=== PATIENT | male | born 1975 | race Caucasian/White ===

== ENCOUNTER 2019-05-04 09:28 | Emergency (ER) | payer OTHER, SELFPAY ==
--- NOTE | ~2019-05-04 | XR_ITS ---
EXAMINATION: XR chest 2V DATE: 05/04/2019 11:00 INDICATION: Left anterior chest pain. TECHNIQUE: Frontal and lateral views of the chest were obtained. COMPARISON: Chest 2 views 07/05/2011 FINDINGS: The chest demonstrates clear lungs without pneumonia, pleural effusion, or pneumothorax. Th e heart size is normal. IMPRESSION: 1. No acute cardiopulmonary disease. Reviewed, dictated and finalized at location A. L[facility] SPECIALIST
[2019-05-04 09:50] VITALS: BP 175/112; PULSE 79; RESP 20; TEMP 37; O2SAT 97
--- NOTE | 2019-05-04 10:29 | ECG_ITS ---
Measurements Intervals [place] Rate: 71 P: 55 WV: 185 QRS: 62 QRSD: 100 T: 47 QT: 386 QTc: 422 Interpretive Statements SINUS RHYTHM DELAYED PRECORDIAL R/S TRANSITION BORDERLINE ECG Electronically Signed On 05-04-2019 14:02:03 FAMILY SERVICES SPECIALIST by Paras Delatorre D.O.
--- NOTE | 2019-05-04 10:32 | ED.GENADULT ---
HPI - General Adult General Chief complaint: Dental/Oral Stated complaint: TOOTHACHE Time Seen by Provider: 05/04/19 10:10 Source: patient Mode of arrival: ambulatory Limitations: no limitations History of Present Illness HPI narrative: Phong is a very pleasant 43-year-old male patient. He presents ambulatory to the emergency room. He says that he has had toothache in tooth 9 for the past week. Phong has had root canals done in tooth 8. And 9 about 10 years ago by . However he has not seen a dentist in several years. The feelings are on the inner aspect of the teeth. His dentition appears to be okay. No fever. No difficulty swallowing or chewing. No difficulty opening his mouth wide. Phong also states that for the past 1 month or so he has had some vague left chest discomfort. He says it is not related to any particular activity. It just comes and goes. Right now he is not having any discomfort or pain. At times it goes down the left arm with some numbness any does not have this symptom now. When asked him about his past history, he states that he has hypertension. He is not on any medication. He has not seen a doctor for this. I asked him how dizzy know that he has hypertension any said that he had seen his primary care physician more than 10 years ago and at that time they were watching his blood pressure but was not on any medication. Phong is no history of RI, diabetes mellitus, cancer of any type. He is not a smoker. He does however smoke marijuana daily. Both his parents are alive. They are 69 years of age each. He says his father has hypertension but is also not on any medication Phong has not had any surgery except root canal. He had a broken wrist on the right side in the remote past. MD complaint: Toothache. chest discomfort. Onset (ago): month(s) ( Chest discomfort for 1 month. Toothache for 1 week.) Location: chest Radiation: other ( see HPI narrative for details) Severity: mild Relieving factors: other ( symptoms are intermittent. Currently he is not having any symptoms.) Exacerbating factors: none Associated symptoms: other ( See HPI narrative) Treatments prior to arrival: none Related Data Allergies Allergy/AdvReac Type Severity Reaction Status Date / Time No Known Allergies Allergy Verified 05/04/19 10:32 Review of Systems Review of Systems: All systems reviewed & are unremarkable except as noted in HPI and below Constitutional: Constitutional: Reports as per HPI, Reports no additional constitutional complaints, Denies chills, Denies fever(s) and Denies weakness Eyes: Eyes: Reports as per HPI, Reports no additional eye complaints and Denies change in vision ENT: Reports system reviewed and no additional complaints, except as documented, Denies dysphagia, Denies vertigo, Denies nasal congestion and Denies sore throat Cardiovascular: Cardiovascular: Reports as per HPI, Reports chest pain and Reports radiating jaw, neck or arm pain Respiratory: Respiratory: Reports as per HPI, Reports no additional respiratory complaints and Denies cough Gastrointestinal: Gastrointestinal: Reports as per HPI, Reports no additional gastrointestinal complaints, Denies abdominal pain, Denies diarrhea and Denies vomiting Genitourinary: Genitourinary: Reports no additional male genitourinary complaints, Denies hematuria and Denies dysuria Musculoskeletal: Musculoskeletal: Reports no additional musculoskeletal complaints and Denies back pain Integumentary/Breasts: Skin/Breast: Reports system reviewed and no additional complaints, except as docu, Denies erythema and Denies rash Neurologic: Reports system reviewed and no additional complaints, except as documented, Reports as per HPI, Denies vertigo, Denies dizziness and Denies syncope Comments: mild anxiety. Psychiatric: Psychiatric: Reports no additional psychiatric complaints and Reports anxiety Endocrine: Endocrine: Reports no additional endocrine complaint
--- NOTE | 2019-05-04 10:56 | PC.NURSE ---
report to dolores wasserman
[2019-05-04 10:58] LABS: Add Urine Microscopic? NO; Appearance Urine Clear (Clear); Bilirubin Urine Negative (Negative); Blood Urine Negative (Negative); Color Urine Yellow (Yellow); Glucose Urine UA Negative (Negative); Ketones Urine Negative (Negative); Leukocyte Esterase Ur Negative LEU/UL (Negative); Nitrate Urine Negative (Negative); Protein Urine Negative (Negative); Urobilinogen Urine 0.2 mg/dL (0.2-1.0)
[2019-05-04 11:04] LABS: Basophils Absolute Auto 0.04 K/mm3 (0.00-0.10); Basophils Percent Auto 0.7 % (0.0-1.0); Eosinophils Absolute Auto 0.07 K/mm3 (0.02-0.50); Eosinophils Percent Auto 1.3 % (1.0-6.0); Hematocrit 48.4 % (40.0-54.0); Hemoglobin 16.8 g/dL (14.0-18.0); Immature Granulocyte Absolute 0.02 K/mm3 (0.00-0.00); Immature Granulocyte Percent A 0.4 % (0.0-0.0); Lymphocytes Absolute Auto 0.96 K/mm3 (1.10-4.50); Lymphocytes Percent Auto 17.4 % (18.0-42.0); Mean Corpuscular HGB Conc 34.7 g/dL (32.0-36.0); Mean Corpuscular Hemoglobin 32.7 pg (27.0-31.0); Mean Corpuscular Volume 94.2 fL (78.0-102.0); Mean Platelet Volume 8.9 fl (8.7-11.0); Monocytes Percent Auto 7.3 % (2.0-11.0); Neutrophils Percent Auto 72.9 % (50.0-70.0); Platelet Count Result 249 K/mm3 (150-420); Red Blood Count 5.14 M/mm3 (4.70-6.10); White Blood Count 5.5 K/mm3 (4.8-10.8)
[2019-05-04 11:09] LABS: Amphetamine Screen Urine Negative (Negative); Barbiturate Screen Urine Negative (Negative); Benzodiazepines Screen Urine Negative (Negative); Cannabinoid Screen Urine Positive (Negative); Cocaine Screen Urine Negative (Negative); Methadone Screen Urine Negative (Negative); Opiate Screen Urine Negative (Negative); Phencyclidine Screen Urine Negative (Negative)
[2019-05-04 11:13] LABS: Partial Thromboplastin Time 26.8 SEC (22.3-31.6); Prothrombin Time 10.4 Seconds (9.64-11.0)
[2019-05-04 11:14] LABS: Influenza Control Valid (Valid)
[2019-05-04 11:25] LABS: Alanine Aminotransferase 32 U/L (16-63); Albumin Level 4.2 g/dL (3.4-5.0); Alkaline Phosphatase 68 U/L (46-116); Anion Gap 15.4 mmol/L (7-16); Aspartate Amino Transferase 18 U/L (15-37); Bilirubin,Total 0.5 mg/dL (0.00-1.00); Blood Urea Nitrogen 13 mg/dL (7-18); Calcium 8.7 mg/dL (8.5-10.1); Carbon Dioxide 27 mmol/L (21-32); Chloride 103 mmol/L (98-108); Creatine Kinase 124 U/L (39-308); Estimated CRCL calculation 130 ml/min; Estimated Glomerular Filt Rate > 60; Glucose 124 mg/dL (70-99); Osmolality Calculated 293 mOsm/kg (285-295); Potassium 4.4 mmol/L (3.5-5.1); Sodium 141 mmol/L (136-145)
[2019-05-04 11:26] LABS: Magnesium 2.1 mg/dL (1.8-2.4); Thyroid Stimulating Hormone 1.85 uIU/mL (0.36-3.74); Troponin I < 0.02 ng/mL (0.00-0.056)
[2019-05-04 11:42] VITALS: BP 141/100; PULSE 20; RESP 20; O2SAT 97
[2019-05-04 11:55] LABS: Erythrocyte Sedimentation Rate 2 mm/hr (0-15)
== END 2019-05-04 11:45 | disposition home or self-care (01) ==
LOC: CHSED 09:33
PROVIDERS: Emergency Provider Surgery
DX: K02.9 Dental caries, unspecified (principal); K08.89 Other specified disorders of teeth and supporting structures; I10 Essential (primary) hypertension
CPT/HCPCS: 36415; 71046; 80053; 80307; 81003; 82550; 82553; 83735; 84443; 84484; 85025; 85610; 85652; 85730; 87804; 93005; 99284

== ENCOUNTER 2021-12-14 13:32 | Outpatient (CLI) | payer BC, SELFPAY ==
--- NOTE | ~2021-12-14 | XR_ITS ---
XR chest 2V 12/14/2021 13:55 Indication: Chest palpitations Procedure: 2 view chest Comparison: 05/04/2019 Findings: Heart size normal. There are prominent bilateral emily. Cannot exclude lymph node enlargemen t. No focal airspace disease, pleural effusion, edema or pneumothorax. Impression: 1: Mildly prominent bilateral emily. Cannot exclude hilar lymphadenopathy. Consider correlation with c ontrast-enhanced CT chest. Reviewed, dictated and finalized at location A. Impression: 1: Mildly prominent bilateral emily. Cannot exclude hilar lymphadenopathy. Consi lexy correlation with contrast-enhanced CT chest.
--- NOTE | 2022-01-29 08:10 | WPDHOLTEREM ---
Holter/Event Monitor Holter/Event Monitor Date of procedure: 12/14/21 Holter/Event Procedure: Event Monitor Indications: Palpitations Conclusion: 1. 9 days event monitor between 12/14/21-01/12/22. There are 36 available transmissions for analysis. 2. Underlying rhythm is sinus rhythm. HR range 46-120 bpm; average HR 80 bpm. 3. There are occasional premature supraventricular complexes with total burden of <1%. No supraventricular tachycardia. 4. There are occasional premature ventricular complexes with total burden of 1%. No ventricular tachycardia. 5. There is a second degree AV block, type I at 46 bpm on 12/18/21 at 00:59. No significant pauses greater than 2 seconds. 6. Patient reports 27 episodes of symptoms of heart racing, skipped beat, chest pain, symptoms other than listed which demonstrate sinus rhythm, HR range 68-119 bpm with one episode with PAC.
== END 2021-12-14 13:33 | disposition home or self-care (01) ==
PROVIDERS: PCP Internal Medicine; Visit Provider Internal Medicine
DX: R00.2 Palpitations (principal); I10 Essential (primary) hypertension
CPT/HCPCS: 71046; 93270

== ENCOUNTER 2021-12-18 07:27 | Outpatient (CLI) | payer BC, SELFPAY ==
--- NOTE | ~2021-12-18 | CT_ITS ---
EXAMINATION:CT diagnostic chest w con DATE: 12/18/2021 08:32 INDICATION: Abnormal chest radiographs. Left chest discomfort. Palpitations. TECHNIQUE: Computed tomography (CT) of the chest was performed with 75 mL Omnipaque 350 intravenous c ontrast. Automated exposure control and iterative reconstruction technique were employed. The dose-le ngth product (DLP) was 504.63 mGy-cm. COMPARISON: Chest 2 views 12/14/2021 FINDINGS: There is a 3 mm nodule in right upper lobe, likely benign. There is a 10 mm nodule at right major fissure, likely an enlarged intrapulmonary lymph node. No pleural effusion. The heart size is normal. No pericardial effusion. There is bilateral hilar and mediastinal lymphadenopathy. For exampl e, a prevascular node measures 2.8 x 1.1 cm. There is a 1.1 cm mass in left hepatic lobe. There is mi ld thoracic spondylosis. There is mild chronic anterior wedging of T11 and T12 vertebral bodies, like ly physiologic. IMPRESSION: 1. Right lung nodule and bilateral hilar and mediastinal lymphadenopathy. These findings are most lik chong reactive lymphadenopathy such as sarcoid. Malignancy such as lymphoma cannot be excluded. 2. 1.1 cm mass in left hepatic lobe, which may be benign or less likely malignant. Abdomen MRI withou t and with contrast is recommended. Reviewed, dictated and finalized at location A. IMPRESSION: 1. Right lung nodule and bilateral hilar and mediastinal lymphadenopathy. These findings are most likely reactive lymphadenopathy such as sarcoid. Malignancy such as lymphoma cannot be excluded. 2. 1.1 cm mass in left hepatic lobe, which may be benign or less likely maligna nt. Abdomen MRI without and with contrast is recommended.
[2021-12-18 08:16] LABS: Estimated Glomerular Filt Rate > 60
== END 2021-12-18 07:28 | disposition home or self-care (01) ==
LOC: CHSIMG 07:29
PROVIDERS: PCP Internal Medicine; Visit Provider Internal Medicine
DX: R91.8 Other nonspecific abnormal finding of lung field (principal)
CPT/HCPCS: 71260; Q9967

== ENCOUNTER 2022-03-05 17:09 | Outpatient (CLI) | payer BC, SELFPAY ==
[2022-03-05 18:09] LABS: Influenza A QL RT-PCR Negative (Negative); Influenza B QL RT-PCR Negative (Negative); SARS-CoV-2 RNA PCR Positive (Negative)
[2022-03-05 18:25] LABS: RSV RNA, RT-PCR Negative (Negative)
== END 2022-03-05 17:10 | disposition home or self-care (01) ==
LOC: CHSLAB 17:11
PROVIDERS: PCP Internal Medicine; Visit Provider Internal Medicine
DX: U07.1 COVID-19 (principal); R05.9 Cough, unspecified; R50.9 Fever, unspecified
CPT/HCPCS: 87637

== ENCOUNTER 2022-10-15 15:57 | Outpatient (CLI) | payer BC, SELFPAY ==
--- NOTE | ~2022-10-15 | XR_ITS ---
XR foot RT min 3V DATE: 10/15/2022 16:33 INDICATION: Right Achilles tendinitis for 5 months. No injury. TECHNIQUE: 4 views COMPARISON: None FINDINGS: No calcification of the Achilles tendon or posterior calcaneal enthesopathy is noted. Slight plantar calcaneal enthesopathy. Moderate osteoarthritis at the first metatarsophalangeal joint. Os tibiale externum, normal variant. No fracture, dislocation, periosteal reaction or bone destruction or erosive change is noted. IMPRESSION: Slight plantar calcaneal enthesopathy Osteoarthritis at first metatarsophalangeal joint Reviewed, dictated and finalized at location B.
== END 2022-10-15 15:58 | disposition home or self-care (01) ==
LOC: CHSIMG 15:59
PROVIDERS: PCP Internal Medicine; Visit Provider Internal Medicine
DX: M76.61 Achilles tendinitis, right leg (principal); M77.31 Calcaneal spur, right foot; M19.071 Primary osteoarthritis, right ankle and foot
CPT/HCPCS: 73630

== ENCOUNTER 2022-10-29 14:59 | Outpatient (CLI) | payer BC, SELFPAY ==
--- NOTE | ~2022-10-29 | US_ITS ---
EXAMINATION: US venous doppler LE RT DATE: 10/29/2022 15:28 INDICATION: Right calf pain. TECHNIQUE: Grayscale ultrasound images without and with compression and Doppler ultrasound images of the right lower extremity veins were obtained. COMPARISON: None. FINDINGS: The visualized portions of right common femoral vein, profunda (deep) femoral vein, femoral vein, pop liteal vein, peroneal veins, posterior tibial veins, and greater saphenous vein outflow are patent. IMPRESSION: 1. No deep venous thrombosis. Reviewed, dictated and finalized at location A.
== END 2022-10-29 15:00 | disposition home or self-care (01) ==
PROVIDERS: PCP Internal Medicine; Visit Provider Internal Medicine
DX: M79.661 Pain in right lower leg (principal)
CPT/HCPCS: 93971

== ENCOUNTER → 2022-11-06 09:00 | Outpatient (CLI) | payer BC, SELFPAY ==
--- NOTE | ~2022-11-06 | MR_ITS ---
EXAMINATION: MR ankle RT wo con DATE: 11/06/2022 09:42 INDICATION: Achilles tendinitis with right calf pain. TECHNIQUE: Magnetic resonance imaging (MRI) of the right ankle was performed without intravenous cont rast. Sequences included sagittal, coronal, and axial proton-density weighted fast spin echo without and with fat saturation. COMPARISON: None. FINDINGS: Medial ankle ligaments: Deep and superficial deltoid ligaments as well as the spring ligament are normal. Lateral ankle ligaments: The anterior and posterior inferior tibiofibular ligaments are normal. The anterior talofibular, calc aneofibular and posterior talofibular ligaments are normal. Tendons: There is fusiform thickening and mild increased signal of the Achilles tendon centered approximately 6 cm proximal to the level of the calcaneal insertion. At the site of maximal thickening is a tiny le nticular T2 hyperintense intrasubstance fluid collection measuring 3 x 1 mm in maximal transaxial dim ensions and extending 7 mm proximal to distal consistent with an intrasubstance tear. No peritendinit is. The peroneus longus and brevis tendons are normal. The tibialis anterior and extensor hallucis lo ngus and extensor digitorum longus tendons are normal. The tibialis posterior, flexor digitorum longu s and flexor hallucis longus tendons are normal. Plantar fascia: Plantar aponeurosis is normal. Bones/other: Small low signal intensity bone island at the posterior calcaneus. Otherwise normal marrow signal wit h no fracture, reactive edema or pathologic marrow replacing process. Joint spaces are normal. Fluid: Physiologic amount fluid in the joint space. 9.8 x 5 mm homogeneously T2 hyperintense ganglion cyst a rising from the plantar aspect of the junction of the articulations at the third and fourth tarsal me tatarsal joints. No tenosynovitis, bursitis no other abnormal fluid collections. IMPRESSION: 1. Mild uniform tendinosis of the Achilles tendon with tiny intrasubstance tear. Reviewed, dictated and finalized at location A. IMPRESSION: 1. Mild uniform tendinosis of the Achilles tendon with tiny intrasubstance tear .
== END ==
PROVIDERS: PCP Internal Medicine; Visit Provider Internal Medicine
DX: M76.61 Achilles tendinitis, right leg (principal)
CPT/HCPCS: 73721

== ENCOUNTER 2022-11-15 13:47 | Outpatient (RCR) | payer BC, SELFPAY ==
--- NOTE | 2022-11-15 16:17 | OPREHPOC ---
Outpatient Therapy Plan of Care This is a Multidisciplinary Plan of Care that may contain components documented by all disciplines (PT, OT, and ST.) PT Problem 1 PT Problem #1 Knowledge Deficit PT Goal 1 Goal 1. Patient to demonstrate independence with HEP to improve progress made in PT. Target Visit 6 PT Problem 2 PT Problem #2 Impaired Flexibility PT Goal 1 Goal 1. Patient to improve R dorsiflexion passive ROM to at least 5 degrees with knee straight to improve patient's ability to walk uphill. 1. Patient to increase R eversion AROM to at least 23 degrees in order to improve patient's ability to perform single leg balance activities. Target Visit 6 PT Goal 2 Goal 1. patient to achieve 10 degrees arom bilateral ankle DF Target Visit 12 PT Problem 3 PT Problem #3 Impaired Strength PT Goal 1 Goal 1. Patient to achieve 5/5 R ankle strength to improve overall gait mechanics. 2. Patient to perform 25 consecutive R heel raises without loosing full range to improve patient's strength for squatting to pick objects up from floor. Target Visit 12 PT Problem 4 PT Problem #4 Pain PT Goal 1 Goal 1. Patient to report no more than 3/10 pain at worst with activity to improve ability to return to prior level functional activity performance and full work duties. Target Visit 12 PT Problem 5 PT Problem #5 Impaired Functional Mobil PT Goal 1 Goal 1. Patient to improve LEFS to 20% or less functional decline in order to improve patient's ability to stand for an hour at work. Target Visit 12
--- NOTE | 2022-11-15 16:18 | PTOPEVAL1 ---
Assessment and note entered by JT File, PT Evaluation Information Assessment Status Evaluation Diagnosis R achilles tendonitis, R heel pain Onset 05/25/22 Subjective Information Patient reports pain in the R heel and achilles area since May of this year, with majority of the pain being localized in the posterior and plantar heel. He visited the doctor and received an x-ray and MRI, showing R achilles tendonitis and a small intersubstance tear. He previously injured the R achilles as a child playing baseball , as well as another injury to the R heel by falling into a hole 3 years ago. He notes the pain comes and goes throughout the day. He has not been doing any exercises or stretching at home, but has been wearing shoe insoles as well as an ankle brace. He notes his goal is to be able to walk on concrete during the work day without increasing pain, he works at [employer]. He states he has been off work for 5 weeks and is planning to return in 3 weeks. He notes no difficulty walking short distances in the home, he does have pain with stair climbing, walking uphill, and lifting heavy weights. He has been treating the pain at home with heat and ice and over the counter pain meds, as well as a prescribed anti-inflammatory. Reported Pain Level Pain Score 0: Self Report Assessment PT Clinical Summary Mr. Walker is a 47 y/o male who presents to skilled PT to address R achilles tendonitis with likely peroneal involvement. He presents with limitations in R ankle ROM, flexibility, and strength. Patient currently has increased difficulty and pain with walking on hard surfaces, lifting heavy weights, walking on inclines, and climbing stairs. He currently has 49% functional decline as assessed by the LEFS. Patient would benefit from continued skilled therapy to address limitations and help patient to return to prior level of function and work. Plan of Care Interventions Electrical Stimulation,Gait Training,Hot Pack/Cold Pack,Manual Therapy,Neuro Re-education,Patient/ Caregiver Educati,Therapeutic Activities, Therapeutic Exercise PT Services Indicated Yes Treatment Frequency and 3x/week for 12 visits Duration These treatments will address the objective and functional deficits as defined above. The patient will be advanced safely and appropriately in order for the patient to p
--- NOTE | 2022-12-04 10:23 | PTOPPROG ---
Assessment and note entered by Marcia Starkey, PT Evaluation Information Assessment Status Progress Diagnosis R Achilles Tendonitis, R heel pain Onset 05/25/22 Subjective Information Phong reports that overall his right heel pain is improving overall. 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 He did have a gradual return of pain starting last week and over the weekend he tried to do some yard work and his pain has increased again. He sees the doctor again on . Assessment PT Clinical Summary Phong Walker has completed 9 skilled PT visits for right Achilles tendonitis and heel pain. He is reporting an overall improvement intially but the last week the pain has gradually worsened again and became even higher after trying to perform yard work. He has been off work from [employer] for 7 weeks due to the pain. Prolonged standing and walking seem to worsen the pain. He objectively demonstrates tenderness in the middle 1/3 of the right Achilles tendon and lateral calcaneal fat pad; decreased right ankle dorsiflexion AROM; painful right ankle plantarflexion AROM; decreased right ankle strength; decreased balance; and impaired gait. He will see his doctor on 12/05/22. We will continue skilled PT x 3 more visits unless instructed otherwise following his physician follow up. Plan of Care Interventions Electrical Stimulation,Hot Pack/Cold Pack,Manual Therapy,Neuro Re-education,Patient/Caregiver Educati,Therapeutic Activities,Therapeutic Exercise Other Interventions Trial of dry needling. PT Services Indicated Yes Treatment Frequency and continue per original POC for 3 additional visits Duration These treatments will address the objective and functional deficits as defined above. The patient will be advanced safely and appropriately in order for the patient to progress towards his/her prior level of function. Additional exercises will be introduced and as well as a comprehensive home exercise program upon discharge, if needed, ?to ensure carryover of functional gains achieved in the clinic. This treatment plan has been reviewed and agreement upon by the patient.
--- NOTE | 2022-12-04 10:23 | OPREHPOC ---
Outpatient Therapy Plan of Care This is a Multidisciplinary Plan of Care that may contain components documented by all disciplines (PT, OT, and ST.) PT Problem 1 PT Problem #1 Knowledge Deficit PT Goal 1 Goal 1. Patient to demonstrate independence with HEP to improve progress made in PT. Target Visit 6 Progress Met PT Problem 2 PT Problem #2 Impaired Flexibility PT Goal 1 Goal 1. Patient to improve R dorsiflexion passive ROM to at least 5 degrees with knee straight to improve patient's ability to walk uphill. Not Met 1. Patient to increase R eversion AROM to at least 23 degrees in order to improve patient's ability to perform single leg balance activities. Not Met Target Visit 6 Progress Not Met Comment Continue PT Goal 2 Goal 1. patient to achieve 10 degrees arom bilateral ankle DF Not Met Target Visit 12 Progress Not Met Comment continue PT Problem 3 PT Problem #3 Impaired Strength PT Goal 1 Goal 1. Patient to achieve 5/5 R ankle strength to improve overall gait mechanics. Partially Met 2. Patient to perform 25 consecutive R heel raises without loosing full range to improve patient's strength for squatting to pick objects up from floor. Partially Met Target Visit 12 Progress Partially Met Comment Continue PT Problem 4 PT Problem #4 Pain PT Goal 1 Goal 1. Patient to report no more than 3/10 pain at worst with activity to improve ability to return to prior level functional activity performance and full work duties. Target Visit 12 Progress Not Met Comment Continue PT Problem 5 PT Problem #5 Impaired Functional Mobil PT Goal 1 Goal 1. Patient to improve LEFS to 20% or less functional decline in order to improve patient's ability to stand for an hour at work. Target Visit 12 Progress
--- NOTE | 2022-12-25 07:41 | OPREHPOC ---
Outpatient Therapy Plan of Care This is a Multidisciplinary Plan of Care that may contain components documented by all disciplines (PT, OT, and ST.) PT Problem 1 PT Problem #1 Knowledge Deficit PT Goal 1 Goal 1. Patient to demonstrate independence with HEP to improve progress made in PT. Target Visit 6 Progress Met PT Problem 2 PT Problem #2 Impaired Flexibility PT Goal 1 Goal 1. Patient to improve R dorsiflexion passive ROM to at least 5 degrees with knee straight to improve patient's ability to walk uphill. 1. Patient to increase R eversion AROM to at least 23 degrees in order to improve patient's ability to perform single leg balance activities. Target Visit 6 Progress Not Met Comment Continue to address PT Goal 2 Goal 1. patient to achieve 10 degrees arom bilateral ankle DF Not Met Target Visit 12 Progress Not Met Comment continue PT Problem 3 PT Problem #3 Impaired Strength PT Goal 1 Goal 1. Patient to achieve 5/5 R ankle strength to improve overall gait mechanics. 2. Patient to perform 25 consecutive R heel raises without loosing full range to improve patient's strength for squatting to pick objects up from floor. Target Visit 12 Progress Met Comment goal met, continue to work on functional strengthening PT Problem 4 PT Problem #4 Pain PT Goal 1 Goal 1. Patient to report no more than 3/10 pain at worst with activity to improve ability to return to prior level functional activity performance and full work duties. Target Visit 12 Progress Met Comment Continue PT Problem 5 PT Problem #5 Impaired Functional Mobil PT Goal 1 Goal 1. Patient to improve LEFS to 20% or less functional decline in order to improve patient's ability to stand for an hour at work. Target Visit
--- NOTE | 2022-12-25 07:42 | PTOPREEVAL ---
Assessment and note entered by JT File, PT Evaluation Information Assessment Status Re-evaluation Diagnosis R Achilles Tendonitis, R heel pain Onset 05/25/22 Subjective Information Patient reports some soreness present in the R heel. He notes that he feels currently at a level similar to before his most recent flare up. He notes he visits the doctor again on December 25, until then he is to remain of work. He reports improved walking and standing tolerance since starting PT, as well as driving. Assessment PT Clinical Summary Phong Walker has completed 12 skilled PT visits for right Achilles tendonitis and heel pain, making progress towards goals. Patient demonstrates improved R ankle strength this date, with some improvements in ROM as well. He continues to have limitations in R ankle dorisflexion ROM and gastrocs length. Patient currently has 37.5% functional decline as assessed by the LEFS, improving from 41% at the last formal assessment. He continues to be limited in activities, not yet being released to return to work. Patient to benefit from continued skilled PT to address remaining ROM deficits, flexibility, and balance to improve patient's tolerance to upright activity for return to work. Plan of Care Interventions Electrical Stimulation,Hot Pack/Cold Pack,Manual Therapy,Neuro Re-education,Patient/Caregiver Educati,Therapeutic Activities,Therapeutic Exercise Other Interventions Trial of dry needling. PT Services Indicated Yes Treatment Frequency and continue POC 3x/week for additional 8 visits Duration These treatments will address the objective and functional deficits as defined above. The patient will be advanced safely and appropriately in order for the patient to progress towards his/her prior level of function. Additional exercises will be introduced and as well as a comprehensive home exercise program upon discharge, if needed, ?to ensure carryover of functional gains achieved in the clinic. This treatment plan has been reviewed and agreement upon by the patient.
== END 2022-12-25 14:00 | disposition home or self-care (01) ==
LOC: CHSPT 13:47
PROVIDERS: Visit Provider Orthopaedic Surgery
DX: M25.571 Pain in right ankle and joints of right foot (principal)
CPT/HCPCS: 97014; 97110; 97112; 97140; 97161; G0283

== ENCOUNTER 2023-04-01 10:02 | Outpatient (RCR) | payer BC, SELFPAY ==
--- NOTE | 2023-04-01 11:06 | OPREHPOC ---
Outpatient Therapy Plan of Care This is a Multidisciplinary Plan of Care that may contain components documented by all disciplines (PT, OT, and ST.) PT Problem 1 PT Problem #1 Knowledge Deficit PT Goal 1 Goal Patient to demonstrate independence with HEP Target Visit 5 PT Problem 2 PT Problem #2 Pain PT Goal 1 Goal Patient to report highest pain at 2/10 Target Visit 10 PT Problem 3 PT Problem #3 Impaired Range of Motion PT Goal 1 Goal Patient to demonstrate R knee AROM 0-135 deg to return to getting into and out of car at PLOF Target Visit 10 PT Problem 4 PT Problem #4 Impaired Strength PT Goal 1 Goal Patient to demonstrate 5/5 R knee strength to return to prolonged ambulation at PLOF Target Visit 10 PT Problem 5 PT Problem #5 Impaired Functional Mobil PT Goal 1 Goal 1. Patient to demonstrate 20% improvement on LEFS 2. Patient to report no pain with rolling in bed 3. Patient to report ability to complete house hold tasks at PLOF Target Visit 10
--- NOTE | 2023-04-01 11:06 | PTOPEVAL1 ---
Assessment and note entered by Meredith Starkey DPT Evaluation Information Assessment Status Evaluation Diagnosis R knee pain Onset 03/13/23 Subjective Information Patient reports on 03/13/23 he was getting out of a [employer] at work and twisted his R knee and since has had an increase in R knee pain. He reports he has had an MRI that shows a medial meniscus tear and torn deep fibers of MCL. He reports they have not recommended surgery at this time. He reports pain is improving since injury. He reports difficulty with rolling over in bed, getting out of the car and walking prolonged distances. He is wearing a R knee brace. He is not currently working. He is waiting on a follow up MD appointment with a new provider. Reported Pain Level Pain Score 4: Self Report Assessment PT Clinical Summary Mr. Walker is a 47 year old male who presents to PT with R knee pain consistent with R medial meniscus involvement. Patient demonstrates decreased R knee AROM, decreased R knee strength and decreased flexibility of the R hamstring limiting his ability to roll over in bed, get into and out of the car and ambulate prolonged distances. He will benefit from skilled PT to address impairments and return to PLOF. Plan of Care Interventions Electrical Stimulation,Gait Training,Hot Pack/Cold Pack,Manual Therapy,Neuro Re-education,Patient/ Caregiver Educati,Therapeutic Activities, Therapeutic Exercise PT Services Indicated Yes Treatment Frequency and 2x weekly for 10 visits Duration These treatments will address the objective and functional deficits as defined above. The patient will be advanced safely and appropriately in order for the patient to progress towards his/her prior level of function. Additional exercises will be introduced and as well as a comprehensive home exercise program upon discharge, if needed, ?to ensure carryover of functional gains achieved in the clinic. This treatment plan has been reviewed and agreement upon by the patient.
--- NOTE | 2023-04-04 09:20 | PCPTNOTE ---
Patient cancelled session today due to insurance complications.
--- NOTE | 2023-06-13 08:39 | PCPTNOTE ---
patient discharged due to insurance and work comp claim
== END 2023-04-01 20:00 | disposition home or self-care (01) ==
LOC: CHSPT 10:02
DX: S83.411D Sprain of medial collateral ligament of right knee, subsequent encounter (principal)
CPT/HCPCS: 97014; 97110; 97161; G0283

== ENCOUNTER 2023-06-13 10:28 | Emergency (ER) | payer BC, SELFPAY ==
--- NOTE | ~2023-06-13 | US_ITS ---
US venous doppler LE RT DATE: 06/13/2023 10:50 INDICATION: Right calf pain, swelling which began 06/03/2023 at and of a road trip TECHNIQUE: Real-time and color flow imaging and Doppler analysis of the veins of the right lower extr emity COMPARISON: None FINDINGS: The greater saphenous vein is patent. Right common femoral vein is patent. Intraluminal thrombus is identified within the mid and distal right femoral vein, popliteal vein and posterior tibial and peroneal veins IMPRESSION: Deep venous thrombosis of right lower extremity Reviewed, dictated and finalized at [facility]. Reviewed, dictated and finalized at location [facility].
[2023-06-13 10:30] VITALS: BP 148/119; PULSE 90; RESP 16; TEMP 36.8; O2SAT 100
--- NOTE | 2023-06-13 11:34 | ED.EXTPRO ---
HPI - Extremity Problem General Chief complaint: Extremity Problem,Nontraumatic Stated complaint: right calf swelling/pain Time Seen by Provider: 06/13/23 10:28 Source: patient Mode of arrival: ambulatory Limitations: no limitations History of Present Illness HPI Narrative: this is a 48-year-old male who presents with some right calf pain after he was on a long trip and developed calf pain subsequent to that posterior calf tenderness warmth and some swelling with no shortness of breath no fever chills. Patient does have a history of hypertension and takes lisinopril. Otherwise no chest pain no shortness of breath no nausea vomiting or abdominal pain. MD Complaint: extremity pain and extremity swelling Onset (ago): day(s) Pain Consistency: constant Location: right Related Data Allergies Allergy/AdvReac Type Severity Reaction Status Date / Time No Known Allergies Allergy Verified 06/13/23 10:30 Review of Systems Review of Systems: All systems reviewed & are unremarkable except as noted in HPI and below PMFSH Past Medical History Medical History No active medical problems Sarcoidosis Surgical History Surgical History History of root canal procedure Family History Family History Mother No problems noted. Father Hypertension Social History Social History Social History: Patient states that he vapes at certain times, but not often. Smoking status: Never smoker (not tobacco; smokes marijuana daily, vapes marijuana) Alcohol intake: never Substance use: current Substance use type: marijuana Exam Const: General: healthy appearing and no acute distress Nutritional Appearance: well nourished Orientation/consciousness: patient oriented x3 Limitations: no limitations Neck: Neck: normal visual inspection and no lymphadenopathy Chest: Chest palpation & inspection: normal inspection of the chest Resp: Effort & Inspection: normal respiratory effort Auscultation: clear to auscultation bilaterally Cardio: Rate: regular rate Rhythm: regular rhythm GI: GI Palp: Yes Soft to palpation Auscultation: normal bowel sounds Skin: General skin exam: normal color Extrem: Other: Right posterior calf pain and tenderness with palpation Psych: Mental Status: mental status grossly normal Course Course Emergency Course: patient had a ultrasound performed which shows deep venous thrombosis of the right calf and will start patient on Eliquis and advised patient follow with his primary within the next 2 to 3 days for further evaluation. Vital Signs Vital signs: Vital Signs Temperature 36.8 C 06/13/23 10:30 Pulse Rate 90 06/13/23 10:30 Respiratory Rate 16 06/13/23 10:30 Blood Pressure 148/119 H 06/13/23 10:30 Pulse Oximetry 100 06/13/23 10:30 Oxygen Delivery Room Air 06/13/23 10:30 Temperature 36.8 C 06/13/23 10:30 Pulse Rate 90 06/13/23 10:30 Respiratory Rate 16 06/13/23 10:30 Blood Pressure 148/119 H 06/13/23 10:30 Pulse Oximetry 100 06/13/23 10:30 Oxygen Delivery Room Air 06/13/23 10:30 Critical Care Time Critical Care Time Critical Care Time: No Discharge Plan Discharge Clinical Impression: Deep vein thrombosis of lower extremity Qualifiers: Affected thrombotic vein of extremity: unspecified vein of extremity Chronicity: acute Laterality: right Qualified Code(s): I82.401 - Acute embolism and thrombosis of unspecified deep veins of right lower extremity Patient Disposition: Home, Self-Care Condition: Stable Instructions: Antibiotic Form, Deep Vein Thrombosis (ED) Additional Instructions: advised to take medicine as prescribed, can take Tylenol as needed otherwise avoid NSAIDs, and follow up with primary within
--- NOTE | 2023-06-13 11:47 | PC.NURSE ---
On 06/13/23, the student, Ester Jerez, provided care and completed [facility] documentation on this patient. I have reviewed the student's documentation and agree with the findings.
[2023-06-13 11:50] VITALS: BP 155/96; PULSE 79; RESP 17; TEMP 36.7; O2SAT 98
--- NOTE | 2023-06-13 14:55 | ED.GENADULT ---
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 The patient returns to the emergency department appears comfortable currently not complaining of shortness of breath no chest pain no fever chills no abdominal pain no nausea or vomiting. Onset (ago): hour(s) Related Data Allergies Allergy/AdvReac Type Severity Reaction Status Date / Time No Known Allergies Allergy Verified 06/13/23 14:10 Review of Systems Review of Systems: All systems reviewed & are unremarkable except as noted in HPI and below PMFSH Past Medical History Medical History No active medical problems Sarcoidosis Surgical History Surgical History History of root canal procedure Family History Family History Mother No problems noted. Father Hypertension Social History Social History Social History: Patient states that he vapes at certain times, but not often. Smoking status: Never smoker (not tobacco; smokes marijuana daily, vapes marijuana) Alcohol intake: never Substance use: current Substance use type: marijuana Exam Const: General: healthy appearing, no acute distress and alert Nutritional Appearance: well nourished and obese Orientation/consciousness: patient oriented x3 Limitations: no limitations HENMT: Head: normal to inspection Neck: Neck: normal visual inspection, no lymphadenopathy and no meningeal signs Chest: Chest palpation & inspection: normal inspection of the chest Resp: Effort & Inspection: normal respiratory effort Auscultation: clear to auscultation bilaterally Cardio: Rate: regular rate Rhythm: regular rhythm GI: GI Palp: Yes Soft to palpation Auscultation: normal bowel sounds Back/Spine/Pelvis: Back: no CVA tenderness Skin: General skin exam: normal color Rashes: no rashes Neuro: General: patient oriented x3, moves all extremities and no meningeal signs Extrem: Other: Tender right calf with palpation Psych: Affect: Anxious affect present Course Course Emergency Course: patient return to the ER after he was diagnosed early this morning with a DVT in his right lower extremity, had an episode of shortness of breath concerned for PE and will obtain a CTA which was reviewed with patient Vital Signs Vital signs: Vital Signs Temperature 36.8 C 06/13/23 10:30 Pulse Rate 90 06/13/23 10:30 Respiratory Rate 16 06/13/23 10:30 Blood Pressure 148/119 H 06/13/23 10:30 Pulse Oximetry 100 06/13/23 10:30 Oxygen Delivery Room Air 06/13/23 10:30 Temperature 36.7 C 06/13/23 11:50 Pulse Rate 79 06/13/23 11:50 Respiratory Rate 17 06/13/23 11:50 Blood Pressure 155/96 H 06/13/23 11:50 Pulse Oximetry 98 06/13/23 11:50 Oxygen Delivery Room Air 06/13/23 11:50 Medical Decision Making Vital Signs Vital Signs: Vital Signs Temperature 36.8 C 06/13/23 10:30 Pulse Rate 90 06/13/23 10:30 Respiratory Rate 16 06/13/23 10:30 Blood Pressure 148/119 H 06/13/23 10:30 Pulse Oximetry 100 06/13/23 10:30 Oxygen Delivery Room Air 06/13/23 10:30 Temperature 36.7 C 06/13/23 11:50 Pulse Rate 79 06/13/23 11:50 Respiratory Rate 17 06/13/23 11:50 Blood Pressure 155/96 H 06/13/23 11:50 Pulse Oximetry 98 06/13/23 11:50 Oxygen Delivery Room
== END 2023-06-13 11:50 | disposition home or self-care (01) ==
PROVIDERS: Emergency Provider Emergency Medicine; PCP Internal Medicine
DX: I82.411 Acute embolism and thrombosis of right femoral vein (principal); I82.431 Acute embolism and thrombosis of right popliteal vein; I82.441 Acute embolism and thrombosis of right tibial vein; I82.451 Acute embolism and thrombosis of right peroneal vein
CPT/HCPCS: 93005; 93971; 99284

== ENCOUNTER 2023-06-13 14:03 | Emergency (ER) | payer BC, SELFPAY ==
[2023-06-13] VITALS (27 sets, daily range): BP systolic 133–165; BP diastolic 86–111; PULSE 68–97; RESP 11–22; TEMP 36.9–37.2; O2SAT 94–100
--- NOTE | ~2023-06-13 | CT_ITS ---
EXAMINATION: CTA chest PE protocol DATE: 06/13/2023 15:28 INDICATION: Deep venous thrombosis of right lower leg. Shortness of breath, lightheadedness. TECHNIQUE: Computed tomography angiography (CTA) of the chest was performed with 100 mL Omnipaque-350 intravenous contrast timed to evaluate the pulmonary arteries. Coronal maximum intensity projection 3D-reconstructions were created by the technologist. Automated exposure control and iterative reconst ruction technique were employed. Exam dose: 889.31 mGy-cm total exam DLP. COMPARISON: 12/18/2021 CTA chest 06/13/2023 right lower extremity venous duplex examination FINDINGS: Left saddle embolus, with extension into the left upper and lower lobes. Thee are middle a nd right lower lobe pulmonary emboli. Cardiomegaly. No pericardial or pleural effusion. There is mild bilateral hilar and mediastinal adenopathy. No pulmonary infiltrate or consolidation or pulmonary mass lesion. Small sliding hiatal hernia. Mild bilateral gynecomastia. Normal morphology of the adrenal glands. IMPRESSION: Bilateral pulmonary emboli, including saddle embolus on the left Mild bilateral hilar and mediastinal lymphadenopathy Small sliding hiatal hernia Reviewed, dictated and finalized at [facility]. Reviewed, dictated and finalized at location [facility].
--- NOTE | 2023-06-13 14:26 | ECG_ITS ---
Rate PA QRSd QT QTc P QRS T Severity 80 175 123 381 440 46 6 35 Borderline ECG SINUS RHYTHM NORMAL ECG COMPARED TO ECG 05/04/2019 10:33:26 NO SIGNIFICANT CHANGES Electronically Signed On 06-13-2023 14:44:05 CDT by Paras FOWLER
[2023-06-13 14:34] LABS: Basophils Absolute Auto 0.03 K/mm3 (0.00-0.10); Basophils Percent Auto 0.6 % (0.0-1.0); Eosinophils Absolute Auto 0.09 K/mm3 (0.02-0.50); Eosinophils Percent Auto 1.9 % (1.0-6.0); Hematocrit 45.7 % (40.0-54.0); Hemoglobin 15.4 g/dL (14.0-18.0); Immature Granulocyte Absolute 0.02 K/mm3 (0.00-0.00); Immature Granulocyte Percent A 0.4 % (0.0-0.0); Lymphocytes Absolute Auto 0.64 K/mm3 (1.10-4.50); Lymphocytes Percent Auto 13.2 % (18.0-42.0); Mean Corpuscular HGB Conc 33.7 g/dL (32-36); Mean Corpuscular Volume 92.1 fL (78.0-102.0); Mean Platelet Volume 8.7 fl (8.7-11.0); Monocytes Absolute Auto 0.44 K/mm3 (0.10-0.90); Monocytes Percent Auto 9.1 % (2.0-11.0); Neutrophils Absolute Auto 3.62 K/mm3 (1.70-7.20); Neutrophils Percent Auto 74.8 % (50.0-70.0); Platelet Count Result 217 K/mm3 (150-420); Red Blood Count 4.96 M/mm3 (4.70-6.10); Red Cell Distribution Width 11.9 % (11.6-14.4); White Blood Count 4.8 K/mm3 (4.8-10.8)
[2023-06-13 14:54] LABS: Partial Thromboplastin Time 31.2 Sec (23.9-30.70); Prothrombin Time 10.9 Seconds (9.50-12.1)
[2023-06-13 14:58] LABS: Alanine Aminotransferase 27 U/L (16-63); Albumin Level 3.8 g/dL (3.4-5.0); Alkaline Phosphatase 66 U/L (46-116); Anion Gap 10 mmol/L (8-16); Aspartate Amino Transferase 16 U/L (15-37); Bilirubin,Total 0.7 mg/dL (0.00-1.00); Blood Urea Nitrogen 17 mg/dL (7-18); Calcium 8.8 mg/dL (8.5-10.1); Carbon Dioxide 27 mmol/L (21-32); Chloride 103 mmol/L (98-108); Estimated CRCL calculation 141 ml/min; Estimated Glomerular Filt Rate > 60; Glucose 103 mg/dL (70-99); Osmolality Calculated 291 mOsm/kg (285-295); Potassium 4.2 mmol/L (3.5-5.1); Sodium 140 mmol/L (136-145); Total Protein 7.5 g/dL (6.4-8.2)
[2023-06-13] MEDS: ENOXAPARIN 30 MG/0.3 ML SYRINGE 24 MG SUB-Q (16:39)
[2023-06-13] MEDS: ENOXAPARIN 100 MG/ML SYRINGE SUB-Q (16:39)
[2023-06-13 17:02] LABS: NT Pro B Type Natriuretic Pept 47 pg/mL (0-125); Troponin I < 4.0 ng/L (0.00-60.4)
--- NOTE | 2023-06-13 17:22 | ED.DIZZY ---
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 Currently he is stable not complaining of any shortness of breath no lightheadedness no chest pain no nausea vomiting no abdominal pain. Patient was currently on a long road trip and presented earlier this morning with right calf pain and diagnosed with a DVT per ultrasound and started on outpatient anticoagulants with Eliquis. 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 MD elicited complaint: lightheadedness Timing: sudden onset Severity: mild Related Data Allergies Allergy/AdvReac Type Severity Reaction Status Date / Time No Known Allergies Allergy Verified 06/13/23 14:10 Review of Systems Review of Systems: All systems reviewed & are unremarkable except as noted in HPI and below PMFSH Past Medical History Medical History Deep vein thrombosis of lower extremity No active medical problems Sarcoidosis Surgical History Surgical History History of root canal procedure Family History Family History Mother No problems noted. Father Hypertension Social History Social History Social History: Patient states that he vapes at certain times, but not often. Smoking status: Never smoker (not tobacco; smokes marijuana daily, vapes marijuana) Alcohol intake: never Substance use: current Substance use type: marijuana Exam Const: General: healthy appearing, no acute distress and alert Nutritional Appearance: well nourished Orientation/consciousness: patient oriented x3 Limitations: no limitations HENMT: Head: normal to inspection Eyes: Conjunctivae: conjunctivae normal Pupils: Equal, round and reactive pupils present Neck: Neck: normal visual inspection Chest: Chest palpation & inspection: normal inspection of the chest Resp: Effort & Inspection: normal respiratory effort Auscultation: clear to auscultation bilaterally Cardio: Rate: regular rate Rhythm: regular rhythm GI: GI Palp: Yes Soft to palpation Auscultation: normal bowel sounds Skin: General skin exam: normal color Rashes: no rashes Neuro: General: patient oriented x3 Cranial nerves: Yes Nystagmus not present Extrem: Other: right calf tenderness with palpation Psych: Mental Status: mental status grossly normal Course Course Emergency Course: patient diagnosed earlier this morning with a DVT right calf and started on Eliquis. Return to the ER with some shortness of breath and lightheadedness that he did not have earlier this morning. Did a CTA which showed that he has a saddle embolism and started on a dose of Lovenox weight based and received 124mg subcu. Patient's vitals are stable blood pressure 157/106 rate of 79 O2 sats of 97% on room air. EKG normal sinus rhythm with no signs of right heart strain. Labs unremarkable his troponins are negative BNP is 47. Spoke with hospitalist at [facility] which is a patient for transfer. Dr. Valles Vital Signs Vital signs: Vital Signs Temperature 37.2 C 06/13/23 14:08 Pulse Rate 86 06/13/23 14:08 Respiratory Rate 22 H 06/13/23 14:08 Blood Pressure 159/101 H 06/13/23 14:08 Pulse Oximetry 97 06/13/23 14:08 Oxygen Delivery Room Air 06/13/23 14:08 Temperature 37.2 C 06/13/23 14:08 Pulse Rate 79
--- NOTE | 2023-06-13 17:40 | PC.NURSE ---
On 06/13/23, the student, Sherine Jerez, provided care and completed [facility] documentation on this patient. I have reviewed the student's documentation and agree with the findings.
== END 2023-06-13 17:59 | disposition short-term general hospital (02) ==
PROVIDERS: Emergency Provider Emergency Medicine; PCP Internal Medicine
DX: T79.0XXA Air embolism (traumatic), initial encounter (principal); Z86.718 Personal history of other venous thrombosis and embolism
CPT/HCPCS: 36415; 71275; 80053; 83880; 84484; 85025; 85610; 85730; 93005; 96372; 99285; J1650; Q9967

== ENCOUNTER 2023-09-10 09:28 | Outpatient (CLI) | payer BC, SELFPAY ==
--- NOTE | ~2023-09-10 | US_ITS ---
EXAMINATION: US venous doppler LE RT DATE: 09/10/2023 10:12 INDICATION: Acute deep vein thrombosis of right lower limb. TECHNIQUE: Grayscale ultrasound images without and with compression and Doppler ultrasound images of the right lower extremity veins were obtained. COMPARISON: Ultrasound 06/13/2023 FINDINGS: The visualized portions of right common femoral vein, profunda (deep) femoral vein, peroneal veins, p osterior tibial veins, and greater saphenous vein outflow are patent. There is thrombus in right femo ral vein and right popliteal vein. IMPRESSION: 1. Deep vein thrombosis involving right femoral vein and right popliteal vein with interval improvem ent. Reviewed, dictated and finalized at location [facility]. IMPRESSION: 1. Deep vein thrombosis involving right femoral vein and right popliteal vein with interval improvement.
== END 2023-09-10 09:29 | disposition home or self-care (01) ==
PROVIDERS: PCP Internal Medicine; Visit Provider Internal Medicine Hematology & Oncology
DX: I82.411 Acute embolism and thrombosis of right femoral vein (principal); I82.431 Acute embolism and thrombosis of right popliteal vein
CPT/HCPCS: 93971

== ENCOUNTER 2023-11-11 10:01 | Outpatient (CLI) | payer BC, SELFPAY ==
--- NOTE | ~2023-11-11 | US_ITS ---
EXAMINATION: US venous doppler LE RT DATE: 11/11/2023 10:44 INDICATION: Acute deep vein thrombosis. TECHNIQUE: Grayscale ultrasound images without and with compression and Doppler ultrasound images of the right lower extremity veins were obtained. COMPARISON: Ultrasound 09/10/2023. FINDINGS: The visualized portions of right common femoral vein, profunda (deep) femoral vein, femoral vein, per reyez veins, posterior tibial veins, and greater saphenous vein outflow are patent. There is thrombus in right popliteal vein. IMPRESSION: 1. Deep vein thrombosis involving right popliteal vein with interval improvement. Reviewed, dictated and finalized at location [facility]. IMPRESSION: 1. Deep vein thrombosis involving right popliteal vein with interval improveme nt.
== END 2023-11-11 10:02 | disposition home or self-care (01) ==
LOC: ANHIMG 10:02
PROVIDERS: PCP Internal Medicine; Visit Provider Internal Medicine Hematology & Oncology
DX: I82.431 Acute embolism and thrombosis of right popliteal vein (principal)
CPT/HCPCS: 93971

== ENCOUNTER 2024-01-01 09:25 | Outpatient (CLI) | payer OTHER, SELFPAY ==
--- NOTE | ~2024-01-01 | US_ITS ---
EXAMINATION: US venous doppler LE RT DATE: 01/01/2024 09:50 INDICATION: Right lower limb pain. TECHNIQUE: Grayscale ultrasound images without and with compression and Doppler ultrasound images of the right lower extremity veins were obtained. COMPARISON: Ultrasound 11/11/2023 FINDINGS: The visualized portions of right common femoral vein, profunda (deep) femoral vein, femoral vein, per reyez veins, posterior tibial veins, and greater saphenous vein outflow are patent. There is thrombus in right popliteal vein. IMPRESSION: 1. Deep vein thrombosis again seen in right popliteal vein. Reviewed, dictated and finalized at location A.
== END 2024-01-01 09:26 | disposition home or self-care (01) ==
LOC: GOSHIMG 09:27
PROVIDERS: PCP Internal Medicine
DX: I82.431 Acute embolism and thrombosis of right popliteal vein (principal); Z86.718 Personal history of other venous thrombosis and embolism
CPT/HCPCS: 93971

== ENCOUNTER 2024-03-11 10:05 | Emergency (ER) | payer BC, SELFPAY ==
[2024-03-11] VITALS (18 sets, daily range): BP systolic 136–165; BP diastolic 94–103; PULSE 69–99; RESP 12–21; TEMP 36.9–37.2; O2SAT 97–100
--- NOTE | ~2024-03-11 | US_ITS ---
RIGHT LOWER EXTREMITY VENOUS ULTRASOUND Ordering provider: Hussain Gamble MD History: . history of DVT /PE with ongoing right leg and latisha . Comparison: January 01, 2024 FINDINGS: --COMMON FEMORAL: Patent and free of thrombus. Normal compressibility, phasic flow and augmentation. --PROXIMAL SUPERFICIAL FEMORAL: Patent and free of thrombus. Normal compressibility, phasic flow and augmentation. --DISTAL SUPERFICIAL FEMORAL: Patent and free of thrombus. Normal compressibility, phasic flow and au gmentation. --POPLITEAL: Chronic thrombosis.--POSTERIOR TIBIAL: Patent and free of thrombus. Normal compressibili ty, phasic flow and augmentation. 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 Otherwise unremarkable. Reviewed, dictated and finalized at location [facility]. [facility]
--- NOTE | 2024-03-11 10:18 | ED.LOWEXIN ---
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 sensation is similar to what he had when he had his DVT in May of this year. no history of trauma. 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 -- lightheadedness. No chest pain or shortness of breath. no nausea/ vomiting /diarrhea. A received COVID shot 1 week ago. patient is compliant with his Eliquis. Onset (ago): day(s) ( 4 days) Injury: Right: thigh Relieving factors: nothing Exacerbating factors: nothing Related Data Allergies Allergy/AdvReac Type Severity Reaction Status Date / Time No Known Allergies Allergy Verified 03/11/24 10:15 Review of Systems Review of Systems: All systems reviewed & are unremarkable except as noted in HPI and below Constitutional: Constitutional: Reports as per HPI and Reports no additional constitutional complaints Comments: Lightheadedness without any relation to activity or position. Eyes: Eyes: Reports as per HPI and Reports no additional eye complaints ENT: Reports system reviewed and no additional complaints, except as documented and Reports as per HPI Cardiovascular: Cardiovascular: Reports as per HPI and Reports no additional cardiovascular complaints Respiratory: Respiratory: Reports as per HPI and Reports no additional respiratory complaints Gastrointestinal: Gastrointestinal: Reports as per HPI and Reports no additional gastrointestinal complaints Genitourinary: Genitourinary: Reports no additional male genitourinary complaints and Reports as per HPI Musculoskeletal: Musculoskeletal: Reports no additional musculoskeletal complaints and Reports as per HPI Integumentary/Breasts: Skin/Breast: Reports system reviewed and no additional complaints, except as docu and Reports as per HPI Neurologic: Reports system reviewed and no additional complaints, except as documented and Reports as per HPI Psychiatric: Psychiatric: Reports no additional psychiatric complaints and Reports as per HPI Endocrine: Endocrine: Reports no additional endocrine complaints and Reports as per HPI Hematologic/Lymphatic: Hematologic/Lymphatic: Reports no additional hematologic/lymphatic complaints and Reports as per HPI Allergic/Immunologic: Allergic/Immunologic: Reports no additional allergic/immunologic complaints and Reports as per HPI PMFSH Past Medical History Medical History Deep vein thrombosis of lower extremity Sarcoidosis No active medical problems Surgical History Surgical History History of root canal procedure Family History Family History Mother No problems noted. Father Hypertension Social History Social History Social History: Patient states that he vapes at certain times, but not often. Smoking status: Never smoker (not tobacco; smokes marijuana daily, vapes marijuana) Alcohol intake: never Substance use: current Substance use type: marijuana Exam Narrative: Hypertensive with a blood pressure of 157/94. Heart rate of 79. Oxygen saturation of 100% on room air with a respiratory rate of 20. patient is not orthostatic Const: General: healthy appearing Nutritional Appearance: well nourished Orientation/consciousness: patient oriented x3 Limitations: no limitations HENMT: Head: normal to inspection Ears: external ears normal Face/Nose/Sinus: Normal external nose present Face and sinus: normal facial exam Mouth: Yes Normal oral and palatal mucosa present Throat: posterior oropharynx normal Eyes: Conjunctivae: conjunctivae normal Pupils: Equal, round and reactive pupils present EOM: EOMs intact bilaterally Direct Ophthalmoscopy: no photophobia Neck: Neck: normal visual inspection, no lymphadenopathy and no meningeal signs Chest: Chest palpation & inspection: normal inspection of the chest Resp: Effort & Inspection: normal respiratory effort Auscultation: clear to auscultation bilaterally Cardio: Rate: regular rate Rhythm: regular rhythm GI: GI Palp: Yes Soft to palpation Auscultation: normal bowel sounds : General: Yes no CVA tenderness Skin: General skin exam: normal color Rashes: no rashes Wounds: no wounds Neuro: General: patient oriented x3, moves all extremities, no meningeal signs, no focal motor deficits and CN's II-XI intact bilaterally Cranial nerves: Yes Nystagmus not present Speech: normal speech Extrem: General: normal to inspection and no clubbing, cyanosis or edema Psych: Mental Status: mental status grossly normal Affect: normal affect Attitude: cooperative Course Course Emergency Course: Right lower extremity cramping-- venous Dopplers revealed 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 EKG did not show any acute findings. The patient had normal blood work including normal troponin Vital Signs Vital signs: Vital Signs Temperature 36.9 C 03/11/24 10:05 Pulse Rate 76 03/11/24 10:05 Respiratory Rate 20 03/11/24 10:05 Blood Pressure 157/94 H 03/11/24 10:05 Pulse Oximetry 100 03/11/24 10:05 Oxygen Delivery Room Air 03/11/24 10:05 Temperature 36.9 C 03/11/24 10:05 Pulse Rate 79 03/11/24 10:15 Respiratory Rate 20 03/11/24 10:05 Blood Pressure 157/94 H 03/11/24 10:05 Pulse Oximetry 100 03/11/24 10:05 Oxygen Delivery Room Air 03/11/24 10:05 Transfer Transfer comments: right calf pain/thigh pain lightheadedness MDM - Extremity Injury (Lower) MDM Narrative Medical decision making narrative: right lower extremity pain lightheadedness Differential Diagnosis Differential diagnosis: Likely other ( DVT) Lab Data 03/11/24 11:18 03/11/24 11:18 Labs: Lab Results 03/11/24 Range/Units 11:18 WBC 3.9 L (4.8-10.8) K/mm3 RBC 4.82 (4.70-6.10) M/mm3 Hgb 15.3 (14.0-18.0) g/dL Hct 43.5 (40.0-54.0) % MCV 90.2 (78.0-102.0) fL MCH 31.7 H (27.0-31.0) pg MCHC 35.2 (32-36) g/dL RDW 12.4 (11.6-14.4) % Plt Count 258 (150-420) K/mm3 MPV 8.6 L (8.7-11.0) fl Immature Gran % (Auto) Not Reportable Neut % (Auto) Not Reportable Lymph % (Auto) Not Reportable [place] % (Auto) Not Reportable Eos % (Auto) Not Reportable Baso % (Auto) Not Reportable Lymph # (Auto) Not Reportable [place] # (Auto) Not Reportable Eos # (Auto) Not Reportable Baso # (Auto) Not Reportable Abs Immat Gran (auto) Not Reportable Absolute Neuts (auto) Not Reportable Absolute Nucleated RBC Not Reportable Total Counted 100 Neutrophils % (Manual) 65 (46-73) % Band Neutrophils % 0 (0-6) % Lymphocytes % (Manual) 20 (18-44) % Monocytes % (Manual) 14 H (3-9) % Eosinophils % (Manual) 1 (1-6) % Nucleated RBC % Not Reportable Abs Neuts (Manual) 2.53 (1.3-6.7) K/mm3 Abs Lymphs (Manual) 0.78 L (1.1-4.5) K/mm3 Abs Monocytes (Manual) 0.54 (0.1-0.90) K/mm3 Absolute Eos (Manual) 0.03 (0.02-0.50) K/mm3 Platelet Estimate Adequate (Adequate) Schistocytes Not Reportable Sodium 139 (136-145) mmol/L Potassium 4.0 (3.5-5.1) mmol/L Chloride 103 (98-108) mmol/L Carbon Dioxide 25 (21-32) mmol/L Anion Gap 11 (4-12) mmol/L BUN 12 (7-18) mg/dL Creatinine 0.69 L (0.70-1.30) mg/dL Estim Creat Clear Calc 145 ml/min Estimated GFR > 60 (59 - ) Glucose 108 H (70-99) mg/dL Calculated Osmolality 288 (285-295) mOsm/kg Calcium 8.8 (8.5-10.1) mg/dL Total Bilirubin 0.6 (0.00-1.00) mg/dL AST 21 (15-37) U/L ALT 31 (16-63) U/L Alkaline Phosphatase 72 (46-116) U/L Troponin I < 4.0 (0.00-60.4) ng/L Total Protein 7.2 (6.4-8.2) g/dL Albumin 3.9 (3.4-5.0) g/dL TSH 1.19 (0.36-3.74) uIU/mL ECG Data EKG #1: ECG completion date: 03/11/24 ECG completion time: 10:24 Interpretation: Normal sinus rhythm. Normal axis. No ST-T wave changes noted. Discharge Plan Discharge Clinical Impression: Right leg pain, Lightheadedness Patient Disposition: Home, Self-Care Condition: Stable Instructions: Antibiotic Form, Deep Vein Thrombosis (ED), Lightheadedness (ED) Patient Language: Bahraini Prescriptions: No Action lisinopril 10 mg tablet 10 mg PO DAILY Qty: 20 0RF Eliquis 5 mg tablet 10 mg PO BID Qty: 28 0RF Rx Instructions: can substitute for 5mg with 10mg tablets. X1 week Follow-up/Referrals: Jose A Che MD [Primary Care Provider] - Time of Disposition: 11:57
--- NOTE | 2024-03-11 10:25 | ECG_ITS ---
Test Date: 2024-03-11 10:24:31 Measurements Intervals [place] Rate: 70 P: 55 MD: 185 QRS: 51 QRSD: 101 T: 52 QT: 392 QTc: 425 Interpretive Statements SINUS RHYTHM No previous ECG available for comparison Electronically Signed On 03-11-2024 14:18:21 [employer] by Sneha Pineda M.D.
[2024-03-11 11:27] LABS: Hematocrit 43.5 % (40.0-54.0); Hemoglobin 15.3 g/dL (14.0-18.0); Mean Corpuscular HGB Conc 35.2 g/dL (32-36); Mean Corpuscular Hemoglobin 31.7 pg (27.0-31.0); Mean Corpuscular Volume 90.2 fL (78.0-102.0); Mean Platelet Volume 8.6 fl (8.7-11.0); Platelet Count Result 258 K/mm3 (150-420); Red Blood Count 4.82 M/mm3 (4.70-6.10); Red Cell Distribution Width 12.4 % (11.6-14.4); White Blood Count 3.9 K/mm3 (4.8-10.8)
[2024-03-11 11:44] LABS: Band Neutrophils Percent 0 % (0-6); Eosinophils Absolute Manual 0.03 K/mm3 (0.02-0.50); Eosinophils Percent Manual 1 % (1-6); Lymphocytes Absolute Manual 0.78 K/mm3 (1.1-4.5); Lymphocytes Percent Manual 20 % (18-44); Monocytes Absolute Manual 0.54 K/mm3 (0.1-0.90); Monocytes Percent Manual 14 % (3-9); Neutrophils Absolute Manual 2.53 K/mm3 (1.3-6.7); Neutrophils Percent Manual 65 % (46-73); Platelet Estimate Adequate (Adequate); Total Cells Counted 100
[2024-03-11 11:50] LABS: Alanine Aminotransferase 31 U/L (16-63); Albumin Level 3.9 g/dL (3.4-5.0); Alkaline Phosphatase 72 U/L (46-116); Anion Gap 11 mmol/L (4-12); Aspartate Amino Transferase 21 U/L (15-37); Bilirubin,Total 0.6 mg/dL (0.00-1.00); Blood Urea Nitrogen 12 mg/dL (7-18); Calcium 8.8 mg/dL (8.5-10.1); Carbon Dioxide 25 mmol/L (21-32); Chloride 103 mmol/L (98-108); Estimated CRCL calculation 145 ml/min; Estimated Glomerular Filt Rate > 60; Glucose 108 mg/dL (70-99); Osmolality Calculated 288 mOsm/kg (285-295); Sodium 139 mmol/L (136-145); Thyroid Stimulating Hormone 1.19 uIU/mL (0.36-3.74); Total Protein 7.2 g/dL (6.4-8.2); Troponin I < 4.0 ng/L (0.00-60.4)
== END 2024-03-11 12:05 | disposition home or self-care (01) ==
PROVIDERS: Emergency Provider Internal Medicine Critical Care Medicine; PCP Internal Medicine
DX: M79.651 Pain in right thigh (principal); R42 Dizziness and giddiness; I10 Essential (primary) hypertension; Z86.718 Personal history of other venous thrombosis and embolism; Z79.01 Long term (current) use of anticoagulants
CPT/HCPCS: 36415; 80053; 84443; 84484; 85025; 93005; 93971; 99284